=== PATIENT | female | born 1980 | race Caucasian/White ===

== ENCOUNTER 2018-09-12 12:23 | Emergency (ER) | payer SELFPAY ==
[2018-09-12] MEDS ORDERED: ONDANSETRON 4 MG TAB.RAPDIS PO ONE (12:54)
[2018-09-12] MEDS ORDERED: MORPHINE SULFATE 10 MG/ML INJ IM ONE (12:54)
--- NOTE | 2018-09-12 12:54 | ER Document Report ---
ED General - General Chief Complaint: Back Pain Stated Complaint: LOW BACK PAIN Time Seen by Provider: 09/12/18 12:43 Notes: Patient is a 38-year-old female with history of chronic low back pain and radiculopathy in the past, that presents to the emergency department for chief complaint of back pain with radicular symptoms. Patient states that yesterday morning she woke up with an ache in her low back, and it seemed to progress over the course of the day, to the point where she was having difficulty moving her right leg, felt like she was dragging it, she denies any numbness, tingling or weakness, denies saddle anesthesia or paresthesia, denies urinary retention or incontinence. ROS: Unless otherwise stated in this report the patient's positive and negative responses for review of systems for constitutional, eyes, ENT, cardiovascular, respiratory, gastrointestinal, neurological, genitourinary, musculoskeletal, and integumentary systems and related systems to the presenting problem are either as stated in the HPI or were not pertinent or were negative for the symptoms and/or complaints related to the presenting medical problem. PHYSICAL EXAMINATION: Vital signs reviewed. GENERAL: Well-appearing, well-nourished and does appear uncomfortable HEAD: Atraumatic, normocephalic. EYES: Pupils equal round extraocular movements intact, conjunctiva are normal. ENT: Nares patent NECK: Normal range of motion CV: Heart regular rate and rhythm LUNGS: No respiratory distress Musculoskeletal: Midline and paraspinal tenderness the lumbar spine, significant , worse on the right compared to the left, reflexes in the patellar and Achilles tendons are intact. NEUROLOGICAL: Normal speech, sensation and strength intact distally in the lower extremities bilaterally. PSYCH: Normal mood, normal affect. MDM: Patient seen and examined for rapid initial assessment. Vital signs reviewed. A comprehensive ED assessment and evaluation of the patient, analysis of test results and completion of the medical decision making process will be conducted by additional ED providers. *Note is created using voice recognition software and may contain spelling, syntax or grammatical errors. TRAVEL OUTSIDE OF THE [place] IN LAST 30 DAYS: No - Related Data Allergies/Adverse Reactions: ciprofloxacin [From Cipro] Allergy (Mild, Verified 09/12/18 12:24) ciprofloxacin HCl [From Cipro] Allergy (Mild, Verified 09/12/18 12:24) aspirin [Aspirin] Allergy (Verified 09/12/18 12:24) Past Medical History - Social History Smoking Status: Current Every Day Smoker Chew tobacco use (# tins/day): No Frequency of alcohol use: None Drug Abuse: None Family History: Reviewed & Not Pertinent, Arthritis, DM, Hypertension, Malignancy Patient has suicidal ideation: No Patient has homicidal ideation: No Pulmonary Medical History: Reports: Hx Bronchitis, Hx Pneumonia Renal/ Medical History: Reports: Hx Kidney Stones. Denies: Hx Peritoneal Dialysis Psychiatric Medical History: Reports: Hx Anxiety - Immunizations Hx Diphtheria, Pertussis, Tetanus Vaccination: Yes Physical Exam - Vital signs Vitals: Temp Pulse Resp BP Pulse Ox 97.6 F 71 18 131/89 H 99 09/12/18 12:29 09/12/18 12:29 09/12/18 12:29 09/12/18 12:29 09/12/18 12:29 Course - Vital Signs Vital signs: Temp Pulse Resp BP Pulse Ox 97.6 F 71 18 131/89 H 99 09/12/18 12:29 09/12/18 12:29 09/12/18 12:29 09/12/18 12:29 09/12/18 12:29
[2018-09-12] MEDS ORDERED: KETOROLAC TROMETHAMINE 60 MG/2 ML SDV IM ONE (14:30)
--- NOTE | 2018-09-12 14:31 | RADIOLOGY REPORT (SQ) ---
EXAM DESCRIPTION: L SPINE WHOLE COMPLETED DATE/TIME: 09/12/2018 2:17 pm REASON FOR STUDY: low back pain COMPARISON: 07/07/2016 NUMBER OF VIEWS: Five views including obliques. TECHNIQUE: AP, lateral, oblique, and sacral radiographic images acquired of the lumbar spine. LIMITATIONS: None. FINDINGS: MINERALIZATION: Normal. SEGMENTATION: Normal. No transitional anatomy. ALIGNMENT: Normal. VERTEBRAE: Maintained height. No fracture or worrisome bone lesion. DISCS: Preserved height. No significant osteophytes or end plate irregularity. POSTERIOR ELEMENTS: Pedicles and facets are intact. No pars defect or posterior arch defects. HARDWARE: None in the spine. PARASPINAL SOFT TISSUES: Normal. PELVIS: Intact as visualized. No fractures or worrisome bone lesions. SI joints intact. OTHER: No other significant finding. IMPRESSION: NORMAL 5 VIEW LUMBAR SPINE. TECHNICAL DOCUMENTATION: JOB ID: [id number] [employer]- All Rights Reserved Reading location - IP/workstation name: [email or web address]
--- NOTE | 2018-09-12 14:32 | ER Document Report ---
ED General - General Chief Complaint: Back Pain Stated Complaint: LOW BACK PAIN Time Seen by Provider: 09/12/18 12:43 Mode of Arrival: Ambulatory Information source: Patient Notes: This is a 38-year-old female with a history of lordosis, chronic back pain that presents to the emergency room with an exacerbation of the lumbar pain radiating down the right lower extremity with difficulty moving that leg. 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 She started having pain yesterday. She denies fever. She denies any recent illnesses. She denies any difficulty urinating or any urinary incontinence. She denies any saddle anesthesia. TRAVEL OUTSIDE OF THE [place]. IN LAST 30 DAYS: No - HPI Onset: Last week Onset/Duration: Gradual Quality of pain: Dull Severity: Moderate Pain Level: 3 Associated symptoms: denies: Chest pain, Fever, Nausea, Vomiting, Shortness of breath Exacerbated by: Movement Relieved by: Remaining still Similar symptoms previously: Yes Recently seen / treated by doctor: No - Related Data Allergies/Adverse Reactions: ciprofloxacin [From Cipro] Allergy (Mild, Verified 09/12/18 12:24) ciprofloxacin HCl [From Cipro] Allergy (Mild, Verified 09/12/18 12:24) aspirin [Aspirin] Allergy (Verified 09/12/18 12:24) Past Medical History - General Information source: Patient - Social History Smoking Status: Current Every Day Smoker Cigarette use (# per day): Yes - Half a pack per day Chew tobacco use (# tins/day): No Frequency of alcohol use: None Drug Abuse: None Lives with: Family Family History: Reviewed & Not Pertinent, Arthritis, DM, Hypertension, Malignancy Patient has suicidal ideation: No Patient has homicidal ideation: No - Past Medical History Cardiac Medical History: Reports: None Pulmonary Medical History: Reports: Hx Bronchitis, Hx Pneumonia Renal/ Medical History: Reports: Hx Kidney Stones. Denies: Hx Peritoneal Dialysis Psychiatric Medical History: Reports: Hx Anxiety Surgical Hx: Negative - Immunizations Hx Diphtheria, Pertussis, Tetanus Vaccination: Yes Review of Systems - Review of Systems Constitutional: denies: Chills, Fever EENT: No symptoms reported Cardiovascular: No symptoms reported Respiratory: No symptoms reported Gastrointestinal: No symptoms reported Genitourinary: No symptoms reported Female Genitourinary: No symptoms reported Musculoskeletal: See HPI, Back pain Skin: No symptoms reported Hematologic/Lymphatic: No symptoms reported Neurological/Psychological: No symptoms reported Physical Exam - Vital signs Vitals: Temp Pulse Resp BP Pulse Ox 97.6 F 71 18 131/89 H 99 09/12/18 12:29 09/12/18 12:29 09/12/18 12:29 09/12/18 12:29 09/12/18 12:29 Notes: Physical exam: GENERAL: Patient is alert and oriented x3, no acute distress HEAD: Atraumatic, normocephalic. EYES: Pupils equal round and reactive to light, extraocular movements intact, sclera anicteric, conjunctiva are normal. ENT: TMs normal, nares patent, oropharynx clear without exudates. Moist mucous membranes. NECK: Normal range of motion, supple without obvious mass or JVD. LUNGS: Breath sounds clear to auscultation bilaterally and equal. No wheezes rales or rhonchi. HEART: Regular rate and rhythm without murmurs, rubs or gallops. ABDOMEN: Soft, normoactive bowel sounds. No tenderness to palpation. No guarding, no rebound. No masses appreciated. Back: Patient does have vertebral point tenderness in the lumbar area and paraspinal tenderness with spasm. She does have a positive straight leg raising on the right to 10 degrees. She does have motor which is grossly similar (possibly less on the right but due to pain). Her reflexes are symmetrical. Her sensory is symmetrical. There is no saddle anesthesia. EXTREMITIES: Normal range of motion, no pitting or edema. No clubbing or cyanosis. NEUROLOGICAL: Cranial nerves II through XII grossly intact. Normal speech, moving all extremities. PSYCH: Normal mood, normal affect. SKIN: Warm, Dry, normal turgor, no rashes or lesions noted. Course - Re-evaluation Re-evalutation: 09/12/18 19:13 Note: I discussed results of the MRI with the patient as well as her mother. Plan will be for steroids, pain medicine, muscle relaxer and following up with a back surgeon. I have given them a copy of the MRI as well as the x-rays to bring to the neurosurgeon. - Vital Signs Vital signs: Temp Pulse Resp BP Pulse Ox 97.9 F 64 16 121/68 100 09/12/18 17:58 09/12/18 17:58 09/12/18 17:58 09/12/18 17:58 09/12/18 17:58 - Diagnostic Test Radiology reviewed: Image reviewed, Reports reviewed - MRI shows disc protrusion with no obvious spinal cord compression. Discharge - Discharge Clinical Impression: Acute back pain Qualifiers: Back pain location: low back pain Sciatica presence: with sciatica Condition: Stable Disposition: HOME, SELF-CARE Instructions: Low Back Pain ([facility]), Oral Narcotic Medication ([facility]), Warm Packs ( [facility]) Additional Instructions: Rest, try heating pads several times a day. Take the Medrol Dosepak as prescribed. Take the Percocet as needed: See the narcotic instructions below. Take the Robaxin for muscle relaxation. I would like you to follow-up with a back surgeon: I provided the number for Dr. Jayant Kirby in [place]. Bring a copy of today's MRI and x-ray with you when you go for that appointment. Dr. Jayant Kirby [facility] [address] [place] [address] The pain medicine you're taking prescribed as a narcotic. There are several important things you should know about this medicine: 1. This medicine contains Tylenol: It is important that you do not take Tylenol (or acetaminophen) while on this medicine. Tylenol is metabolized by the liver and taking too much Tylenol (acetaminophen) can lay to liver damage and even liver failure. 2. Taking narcotics for too long can lead to physical and mental dependence. Take this medicine only if really needed and in the lowest quantity to achieve pain relief. 3. Do not drink alcohol while on this medicine. Alcohol interacts with narcotics and the combination can be dangerous. 4. Do not drive or operate machinery while on this medicine. 5. Narcotics do cause constipation, so drink plenty of fluids and daily stool softeners. Prescriptions: Methocarbamol [Robaxin 500 mg Tablet] 500 mg PO BID #20 tablet Methylprednisolone [Medrol 4 mg Dosepack 21 Tab/Pack] 4 mg PO ASDIR PRN #21 tab.ds.pk PRN Reason: Oxycodone HCl/Acetaminophen [Percocet 5-325 mg Tablet] 1 - 2 tab PO ASDIR PRN # 25 tablet PRN Reason: Forms: Return to Work
--- NOTE | 2018-09-12 16:17 | RADIOLOGY REPORT (SQ) ---
EXAM DESCRIPTION: MRI LUMBAR SPINE WITHOUT COMPLETED DATE/TIME: 09/12/2018 4:00 pm REASON FOR STUDY: right lumbar radiculopathy COMPARISON: None. TECHNIQUE: Sagittal and Axial imaging includes T1, T2, STIR and gradient echo sequences. Coronal T2/ HASTE imaging. LIMITATIONS: None. FINDINGS: VISUALIZED UPPER ABDOMEN: Limited evaluation. No acute or suspicious findings suggested. SEGMENTATION: No transitional anatomy. The lowest well-developed disc space is labeled L5-S1. ALIGNMENT: Anatomic. VERTEBRAE: Intact. BONE MARROW: Minimal fatty reactive vertebral body endplate changes at T12-L1, L1-2, and L4-5 DISC SIGNAL: Diffuse decreased T2 weighted intervertebral disc signal. POSTERIOR ELEMENTS: Generally intact. No pars defect evident. HARDWARE: None in the spine. CORD AND CONUS: Normal in size and signal intensity. Conus at the L1-2 level. SOFT TISSUES: No aortic aneurysm seen. No bulky retroperitoneal adenopathy or mass. No paraspinal mas s or fluid. T11-12: At the upper edge of the field of view. Minimal posterior disc bulging, mild bilateral face t and ligament hypertrophy. No central or foraminal stenosis. T12-L1: Unremarkable L1-L2: Minimal posterior disc bulging is present with mild bilateral facet hypertrophy. No central o r foraminal stenosis. L2-L3: Mild posterior disc bulging is present with mild bilateral facet and ligament hypertrophy. No central or foraminal stenosis. L3-L4: Mild posterior disc bulging is present with mild bilateral facet and ligament hypertrophy. No central or foraminal stenosis L4-L5: Mild posterior disc bulging is present with mild bilateral facet and ligament hypertrophy. No central or foraminal stenosis L5-S1: Mild posterior disc bulging is present with mild bilateral facet and ligament hypertrophy. No central or foraminal stenosis SACRUM: Visualized upper sacrum intact. OTHER: No other significant findings. IMPRESSION: No high-grade central or foraminal encroachment. TECHNICAL DOCUMENTATION: JOB ID: [id number]- All Rights Reserved Reading location - IP/workstation name: [email or web address]-RR
[2018-09-12 18:00] VITALS: BP 121/68
== END 2018-09-12 18:02 | disposition home or self-care (01) ==
LOC: ER 12:23
DX: M51.17 Intervertebral disc disorders with radiculopathy, lumbosacral region (principal); M51.84 Other intervertebral disc disorders, thoracic region; F17.210 Nicotine dependence, cigarettes, uncomplicated; Z88.1 Allergy status to other antibiotic agents; Z88.6 Allergy status to analgesic agent
CPT/HCPCS: 99284; 96372; 72148; 72110; J1885; S0119; J2270

== ENCOUNTER 2019-01-09 19:16 | Emergency (ER) | payer SELFPAY ==
[2019-01-09] MEDS ORDERED: KETOROLAC TROMETHAMINE INJ/PF 30 MG/1 ML SDV IM ONE (21:30)
[2019-01-09] MEDS ORDERED: LIDOCAINE 5% (700 MG) TRANSDERMAL ADH..PATCH TP ONE (21:31)
[2019-01-09] MEDS ORDERED: CYCLOBENZAPRINE HCL 10 MG TABLET PO ONE (21:31)
--- NOTE | 2019-01-09 21:36 | ER Document Report ---
ED General - General Chief Complaint: Low Back Pain Stated Complaint: LOWER BACK PAIN Time Seen by Provider: 01/09/19 21:19 Mode of Arrival: Ambulatory Information source: Patient TRAVEL OUTSIDE OF THE [place].S[place] IN LAST 30 DAYS: No - HPI Patient complains to provider of: Mid lower back pain Onset: Other - 3 days ago Onset/Duration: Sudden Quality of pain: Sharp, Stabbing Severity: Severe Associated symptoms: denies: Chills, Fever Exacerbated by: Movement, Walking Relieved by: Denies Similar symptoms previously: No Recently seen / treated by doctor: No Notes: Obese 38-year-old female in today with chief complaint mid low back pain. Symptoms started 3 days ago while the patient was working out. She was doing an exercise where she was laying on her abdomen and lifting weights with her legs. She felt a sudden pop in her mid low back and has continued to have pain with any kind of movement for the subsequent following 3 days. Denies bladder and bowel dysfunction. Denies saddle anesthesia. Denies focal weakness. Denies urinary symptoms. DENIES . - Related Data Allergies/Adverse Reactions: ciprofloxacin [From Cipro] Allergy (Mild, Verified 09/12/18 12:24) ciprofloxacin HCl [From Cipro] Allergy (Mild, Verified 09/12/18 12:24) aspirin [Aspirin] Allergy (Verified 09/12/18 12:24) Past Medical History - General Information source: Patient - Social History Smoking Status: Current Every Day Smoker Family History: Reviewed & Not Pertinent, Arthritis, DM, Hypertension, Malignancy Patient has suicidal ideation: No Patient has homicidal ideation: No Pulmonary Medical History: Reports: Hx Bronchitis, Hx Pneumonia Renal/ Medical History: Reports: Hx Kidney Stones. Denies: Hx Peritoneal Dialysis Psychiatric Medical History: Reports: Hx Anxiety - Immunizations Hx Diphtheria, Pertussis, Tetanus Vaccination: Yes Review of Systems - Review of Systems Notes: Constitutional: No fevers. No chills. EENT: No eye redness. No eye pain. No ear pain. No sore throat. Cardiovascular: No chest pain. No palpitations. Respiratory: No cough. No shortness of breath. No respiratory distress. Gastrointestinal: No abdominal pain. No nausea, vomiting, or diarrhea. Genitourinary: Atraumatic. No lesions. No pain. No discharge. Musculoskeletal: Atraumatic. No swelling. No deformities. Back pain Skin: No rash or lesions. Lymphatic: No swollen lymph nodes. Neurologic: No headache. No syncope. Psychiatric: No suicidal or homicidal ideation. Physical Exam - Vital signs Vitals: Temp Pulse Resp BP Pulse Ox 97.7 F 83 16 136/87 H 100 01/09/19 19:16 01/09/19 19:16 01/09/19 19:16 01/09/19 19:16 01/09/19 19:16 - Notes Notes: General: Well-developed, well-nourished. In no acute distress. Non-toxic appearing. Cardiac: Well-perfused. Regular rate and rhythm. No murmurs, rubs, or gallops. Pulmonary: No respiratory distress. No cyanosis. Bilateral lung fiels are clear to auscultation. Abdominal: Non-distended. Non-rigid. Bowels sounds are present in all four quadrants. No guarding or rebound. HEENT: Head is atraumatic. Conjunctivae not reddened. No tearing. PERRL. EOMI. Orbits atraumatic. No periorbital swelling or erythema. Oropharynx is without erythema, swelling, or exudates. Neck: Supple. No adenopathy. No meningismus. Dermatologic: Warm with good turgor. No rash. Atraumatic. Chest: Atraumatic. No chest wall tenderness to palpation. Musculoskeletal: Moves all extremities well. Midline lumbosacral tenderness without step-off. Decreased flexion and extension secondary to Genitourinary: Examination deferred Neurologic: No gross neurologic deficits. Psychiatric: Normal mood. Course - Re-evaluation Re-evalutation: 01/09/19 21:35 We will go ahead and get plain films and give her some Lidoderm, Flexeril, and Toradol here. 01/09/19 22:38 X-rays negative. We will go ahead and give her some medications outpatient for lumbar strain. - Vital Signs Vital signs: Temp Pulse Resp BP Pulse Ox 97.7 F 83 16 136/87 H 100 01/09/19 19:16 01/09/19 19:16 01/09/19 19:16 01/09/19 19:16 01/09/19 19:16 Discharge - Discharge Clinical Impression: Lumbar strain Qualifiers: Encounter type: initial encounter Qualified Code(s): S39.012A - Strain of muscle, fascia and tendon of lower back, initial encounter Disposition: HOME, SELF-CARE Instructions: Ice Packs ([facility]), Low Back Pain ([facility]), Muscle Strain ([facility]), Oral Narcotic Medication ([facility]) Prescriptions: Hydrocodone/Acetaminophen [Mobridge 5-325 Tablet] 1 each PO Q6HP PRN #10 tablet PRN Reason: Cyclobenzaprine HCl [Flexeril 5 mg Tablet] 5 mg PO TID #15 tablet Naproxen 500 mg PO BID 5 Days #10 tablet Forms: Elevated Blood Pressure, Smoking Cessation Education, Return to Work Referrals: [facility] [Provider Group] - Follow up as needed
--- NOTE | 2019-01-09 22:23 | RADIOLOGY REPORT (SQ) ---
EXAM DESCRIPTION: XR LUMBAR SPINE ANTEROPOSTERIOR, LATERAL, AND OBLIQUES COMPLETED DATE/TME: 01/09/2019 21:32 CLINICAL HISTORY: 38 years, Female, BACK INJURY COMPARISON: 09/12/2018 lumbar spine NUMBER OF VIEWS: 5 TECHNIQUE: 5 views lumbar spine LIMITATIONS: None. FINDINGS: 5 nonrib-bearing lumbar-type vertebral bodies. Vertebral body height and alignment is preserved. There are no pars defects. The sacroiliac joints are preserved. The disc spaces are maintained IMPRESSION: Unremarkable lumbar spine copyright 2010 [employer]- All Rights Reserved
[2019-01-09] MEDS ORDERED: HYDROCODONE/ACETAMINOPHEN 10-325 MG TABLET PO ONE (22:43)
[2019-01-09 22:53] VITALS: BP 138/88
== END 2019-01-09 22:52 | disposition home or self-care (01) ==
LOC: ER 19:16
DX: S39.012A Strain of muscle, fascia and tendon of lower back, initial encounter (principal); X50.0XXA Overexertion from strenuous movement or load, initial encounter; Y93.B3 Activity, free weights; Z88.3 Allergy status to other anti-infective agents
CPT/HCPCS: 99283; 96372; 72110; J1885

== ENCOUNTER 2019-09-02 18:28 | Emergency (ER) | payer BC ==
--- NOTE | 2019-09-02 18:38 | ER Document Report ---
ED Medical Screen (RME) - General Stated Complaint: POSSIBLE BLOOD CLOT RIGHT LEG Time Seen by Provider: 09/02/19 18:35 Mode of Arrival: Ambulatory Information source: Patient Notes: Patient presents complaining of right lower extremity pain for the past month. Patient with tender raised erythematous area to medial right calf. I have greeted and performed a rapid initial assessment of this patient. A comprehensive ED assessment and evaluation of the patient, analysis of test results and completion of the medical decision making process will be conducted by additional ED providers. TRAVEL OUTSIDE OF THE [place] IN LAST 30 DAYS: No - Related Data Allergies/Adverse Reactions: ciprofloxacin [From Cipro] Allergy (Mild, Verified 09/12/18 12:24) ciprofloxacin HCl [From Cipro] Allergy (Mild, Verified 09/12/18 12:24) aspirin [Aspirin] Allergy (Verified 09/12/18 12:24) Past Medical History Pulmonary Medical History: Reports: Hx Bronchitis, Hx Pneumonia Renal/ Medical History: Reports: Hx Kidney Stones. Denies: Hx Peritoneal Dialysis Psychiatric Medical History: Reports: Hx Anxiety - Immunizations Hx Diphtheria, Pertussis, Tetanus Vaccination: Yes Physical Exam - General General appearance: Appears well, Alert Notes: Tender warm erythematous area to right lower extremity, subtle swelling to right calf.
--- NOTE | 2019-09-02 19:58 | ER Document Report ---
ED General - General Chief Complaint: Swelling of Lower Extremity Stated Complaint: POSSIBLE BLOOD CLOT RIGHT LEG Time Seen by Provider: 09/02/19 18:35 Primary Care Provider: DERIAN DAVIS PA-C [Primary Care Provider] - Follow up as needed Mode of Arrival: Ambulatory TRAVEL OUTSIDE OF THE [place] IN LAST 30 DAYS: No - HPI Notes: Patient is a 39-year-old female who presents to the emergency department for evaluation of right calf pain/swelling. Is been going on intermittently for the last 4 to 6 weeks. She denies any chest pain or shortness of breath. She states she has a family history of DVTs, so she became concerned. She states that the swelling seems to wax and wane, but never really goes away. She tried some boots today, that went up to her knees, and it did not really help much. She has not yet had compression stockings. - Related Data Allergies/Adverse Reactions: ciprofloxacin [From Cipro] Allergy (Mild, Verified 09/12/18 12:24) ciprofloxacin HCl [From Cipro] Allergy (Mild, Verified 09/12/18 12:24) aspirin [Aspirin] Allergy (Verified 09/12/18 12:24) Past Medical History - General Information source: Patient - Social History Smoking Status: Current Every Day Smoker Family History: Reviewed & Not Pertinent, Arthritis, DM, Hypertension, Malignancy Patient has suicidal ideation: No Patient has homicidal ideation: No Pulmonary Medical History: Reports: Hx Bronchitis, Hx Pneumonia Renal/ Medical History: Reports: Hx Kidney Stones. Denies: Hx Peritoneal Dialysis Psychiatric Medical History: Reports: Hx Anxiety - Immunizations Hx Diphtheria, Pertussis, Tetanus Vaccination: Yes Physical Exam - Vital signs Vitals: Temp Pulse Resp BP Pulse Ox 98.4 F 80 16 146/89 H 100 09/02/19 18:32 09/02/19 18:32 09/02/19 18:32 09/02/19 18:32 09/02/19 18:32 Course - Re-evaluation Re-evalutation: 09/02/19 20:56 Presents emergency department for evaluation. She was concerned about the possibility of a DVT. Preliminary exam results were failed to reveal any signs of DVT. Clinically I believe she does have superficial thrombophlebitis. I will send her home with anti-inflammatories, instructions on thrombophlebitis, and close follow-up. She is to return to the ED with worsening or new concerning symptoms of any sort. - Vital Signs Vital signs: Temp Pulse Resp BP Pulse Ox 98.4 F 80 16 146/89 H 100 09/02/19 18:32 09/02/19 18:32 09/02/19 18:32 09/02/19 18:32 09/02/19 18:32 Discharge - Discharge Clinical Impression: Superficial thrombophlebitis of lower leg Condition: Stable Disposition: HOME, SELF-CARE Instructions: Superficial Phlebitis ([facility]) Additional Instructions: Warm compresses and anti-inflammatories as discussed. Follow-up with your primary care physician this week. Return to the emergency department with worsening or new concerning symptoms of any sort. Referrals: DERIAN DAVIS PA-C [Primary Care Provider] - Follow up as needed
[2019-09-02 21:09] VITALS: BP 121/77
--- NOTE | 2019-09-03 10:05 | XCELERA REPORT ---
[address] [place] [facility] [address] Lower Extremity Venous Evaluation Procedure: Color flow and duplex imaging of the veins of the right lower extremity as well as the left Common Femoral vein. Right Sided Venous Evaluation Normal vessel filling wall to wall, compression and augmentation as well as Colour flow down to the infrageniculate veins. Left Sided Venous Evaluation The left common femoral vein is fully compressible. Spontaneous and phasic flow is present in the left common femoral vein. Interpretation Summary No duplex evidence of DVT or obstruction in the right lower extremity nor in the left Common Femoral vein. Name: YUKO CLAY Age: 39 yrs Gender: Female : 1980 Patient Status: Emergency Patient Location: ER Study Date: 09/02/2019 07:46 PM Reason For Study: RLE pain, swelling Ordering Physician: MARCELA MEDELLIN Performed By: Genet Schultz : MARCELA MEDELLIN > Hair Martinez
== END 2019-09-02 21:10 | disposition home or self-care (01) ==
LOC: ER 18:28
DX: I80.00 Phlebitis and thrombophlebitis of superficial vessels of unspecified lower extremity (principal); M79.89 Other specified soft tissue disorders; M79.661 Pain in right lower leg; F17.200 Nicotine dependence, unspecified, uncomplicated; Z88.1 Allergy status to other antibiotic agents; Z88.8 Allergy status to other drugs, medicaments and biological substances
CPT/HCPCS: 93971; 99283

== ENCOUNTER 2020-01-03 15:15 | Emergency (ER) | payer BC ==
--- NOTE | 2020-01-03 16:21 | ER Document Report ---
ED Medical Screen (RME) - General Chief Complaint: Vaginal Bleeding Stated Complaint: VAGINAL BLEEDING Time Seen by Provider: 01/03/20 16:17 Primary Care Provider: DERIAN DAVIS PA-C [Primary Care Provider] - Follow up as needed TRAVEL OUTSIDE OF THE [place] IN LAST 30 DAYS: No - HPI Notes: 01/03/20 16:20 Patient is a 39-year-old female G4, P0 approximately 6 weeks with 3 previous miscarriages presents complaining of light vaginal bleeding that began today. No other concerns or complaints at this time. No fever, chest pain, shortness breath, abdominal pain. Pt is blood type A+ by chart review and red cross card on-hand. I have treated and performed a rapid initial assessment of this patient. A comprehensive ED assessment and evaluation of the patient, analysis of test results and completion of medical decision making process will be conducted by additional ED providers. PHYSICAL EXAMINATION: GENERAL: Well-appearing, well-nourished and in no acute distress. A&Ox4. Answers questions appropriately. - Related Data Allergies/Adverse Reactions: ciprofloxacin [From Cipro] Allergy (Mild, Verified 01/03/20 16:17) ciprofloxacin HCl [From Cipro] Allergy (Mild, Verified 01/03/20 16:17) aspirin [Aspirin] Allergy (Verified 01/03/20 16:17) Past Medical History Pulmonary Medical History: Reports: Hx Bronchitis, Hx Pneumonia Renal/ Medical History: Reports: Hx Kidney Stones. Denies: Hx Peritoneal Dialysis Psychiatric Medical History: Reports: Hx Anxiety - Immunizations Hx Diphtheria, Pertussis, Tetanus Vaccination: Yes Physical Exam - Vital signs Vitals: Temp Pulse Resp BP Pulse Ox 98.8 F 89 16 150/85 H 99 01/03/20 15:24 01/03/20 15:24 01/03/20 15:24 01/03/20 15:24 01/03/20 15:24 Course - Vital Signs Vital signs: Temp Pulse Resp BP Pulse Ox 98.8 F 89 16 150/85 H 99 01/03/20 15:24 01/03/20 15:24 01/03/20 15:24 01/03/20 15:24 01/03/20 15:24 Doctor's Discharge - Discharge Referrals: DERIAN DAVIS PA-C [Primary Care Provider] - Follow up as needed
[2020-01-03 16:48] LABS: ABSOLUTE BASOPHILS # (AUTO) 0.1 10^3/uL (0.0-0.2); ABSOLUTE EOSINOPHILS # (AUTO) 0.2 10^3/uL (0.0-0.6); ABSOLUTE LYMPHOCYTES (AUTO) 2.4 10^3/uL (0.5-4.7); ABSOLUTE MONOCYTES (AUTO) 0.6 10^3/uL (0.1-1.4); ABSOLUTE NEUT (AUTO) 6.3 10^3/uL (1.7-8.2); EOSINOPHILS % (AUTO) 1.7 % (0-6); HEMATOCRIT 44.2 % (36.0-47.0); HEMOGLOBIN 15.2 g/dL (12.0-15.5); MEAN CORPUSCULAR HEMOGLOBIN 31.7 pg (27.0-33.4); MEAN CORPUSCULAR HGB CONC 34.5 g/dL (32.0-36.0); MEAN CORPUSCULAR VOLUME 92 fl (80-97); MONOCYTES % (AUTO) 6.6 % (3-13); PLATELET COUNT 269 10^3/uL (150-450); RED CELL DISTRIBUTION WIDTH 13.5 % (11.5-14.0); SEGMENTED NEUTROPHILS % (AUTO) 65.7 % (42-78); TOTAL CELLS COUNTED % (AUTO) 100 %; WHITE BLOOD COUNT 9.6 10^3/uL (4.0-10.5)
[2020-01-03 16:55] LABS: APPEARANCE,URINE SLIGHTLY-CLOUDY; BILIRUBIN,URINE NEGATIVE (NEGATIVE); COLOR,URINE YELLOW; GLUCOSE, URINE NEGATIVE (NEGATIVE); KETONES,URINE TRACE mg/dL (NEGATIVE); PROTEIN,URINE NEGATIVE (NEGATIVE); URINE SPECIFIC GRAVITY 1.027
--- NOTE | 2020-01-03 18:08 | RADIOLOGY REPORT (SQ) ---
EXAM DESCRIPTION: U/S OB TRANSVAGINAL W/O DOP COMPLETED DATE/TIME: 01/03/2020 5:38 pm REASON FOR STUDY: bleeding, approx 6wks preg COMPARISON: None. TECHNIQUE: Transvaginal static and realtime grayscale images acquired of the pelvis. Additional tala cted spectral and color Doppler images recorded. All images stored on PACs. bHCG: Not available. CLINICAL DATES: LMP 11/21/2019 6 weeks 1 day LIMITATIONS: None. FINDINGS: The patient is known to have a bicornuate uterus. FETUS: Sonographic imaging suggests the presence of a gestational sac and yolk sac in the right horn of the uterus but no pole is identified. In the left horn there is a definable gestational sa c with yolk sac and a pole ULTRASOUND EGA: 6 weeks 0 days by crown-rump length. ULTRASOUND CAITLIN: 08/29/2020 EFW: Not applicable less than 20 weeks. CRL: 3.3 mm. FHR: 117 beats per minute. SURVEY: Too early to assess. AMNIOTIC FLUID: Adequate amount. PLACENTA: Not yet developed due to early gestation. SUBCHORIONIC BLEED: No SIZE OF BLEED: Not applicable. UTERUS: No masses. No anomalies. CERVICAL LENGTH: 2.3 cm Closed. RIGHT ADNEXA: Normal ovary with normal vascular flow. No adnexal free fluid. No adnexal masses. LEFT ADNEXA: Normal ovary with normal vascular flow.2.8 x 3.2 x 2.6 cm. There is a 1.5 x 1 x 1.2 cm corpus luteum. No adnexal free fluid. No adnexal masses. FREE FLUID: None. OTHER: No other significant finding. IMPRESSION: 1. Possible twin gestation with a gestational sac in each horn of a known bicornuate ut erus. A pole is not seen on the right. Follow-up as clinically indicated. 2. Intrauterine gestation with a pole in the left horn of the uterus of 6 weeks 0 days gestati onal age. TECHNICAL DOCUMENTATION: JOB ID: [id number] 2010 [employer]- All Rights Reserved rev-04/07 Reading location - IP/workstation name: [email or web address]
[2020-01-03 18:15] LABS: ALBUMIN 4.1 g/dL (3.5-5.0); ALKALINE PHOSPHATASE 43 U/L (38-126); ANION GAP 8 (5-19); ASPARTATE AMINO TRANSFERASE 19 U/L (14-36); BILIRUBIN,TOTAL 0.4 mg/dL (0.2-1.3); BLOOD UREA NITROGEN 16 mg/dL (7-20); CALCIUM 9.4 mg/dL (8.4-10.2); CARBON DIOXIDE 25 mmol/L (22-30); CHLORIDE 104 mmol/L (98-107); GLUCOSE 82 mg/dL (75-110); POTASSIUM 4.8 mmol/L (3.6-5.0); TOTAL PROTEIN 6.9 g/dL (6.3-8.2)
--- NOTE | 2020-01-03 18:23 | ER Document Report ---
ED General - General Chief Complaint: Vag Bleeding, +preg <12wks Stated Complaint: VAGINAL BLEEDING Time Seen by Provider: 01/03/20 16:17 Primary Care Provider: DERIAN DAVIS PA-C [PHYSICIAN DIRECTOR OF LAND ACQUISITION] - Follow up as needed Notes: Patient is a 39-year-old white female who is G4, P0 with 3 prior miscarriages who presents to the emergency department with a chief complaint of vaginal bleeding with . She states she is 6 weeks per last menstrual period. She states that she is not trying to conceive. She states about 20 minutes prior to arrival she started having scant, spotting of a bright red blood with few clots. She denies any pain associated. Denies any urinary symptoms. States that she was supposed to have an appointment with her COMMERCIAL CENSUS TAKER tomorrow but called today with concerns and they sent her here for evaluation. She states that she is aware of having a history of a bicornuate uterus and feels this is why she has had 3 prior miscarriages. She denies any other pain, complaints or concerns at this time. TRAVEL OUTSIDE OF THE [place] IN LAST 30 DAYS: No - Related Data Allergies/Adverse Reactions: ciprofloxacin [From Cipro] Allergy (Mild, Verified 01/03/20 16:17) ciprofloxacin HCl [From Cipro] Allergy (Mild, Verified 01/03/20 16:17) aspirin [Aspirin] Allergy (Verified 01/03/20 16:17) Home Medications: prenatals Past Medical History - Social History Smoking Status: Current Every Day Smoker Chew tobacco use (# tins/day): No Frequency of alcohol use: None Drug Abuse: None Family History: Reviewed & Not Pertinent, Arthritis, DM, Hypertension, Malignancy Patient has suicidal ideation: No Patient has homicidal ideation: No Pulmonary Medical History: Reports: Hx Bronchitis, Hx Pneumonia Renal/ Medical History: Reports: Hx Kidney Stones. Denies: Hx Peritoneal Dialysis Psychiatric Medical History: Reports: Hx Anxiety - Immunizations Hx Diphtheria, Pertussis, Tetanus Vaccination: Yes Review of Systems - Review of Systems Female Genitourinary: Vaginal bleeding -: Yes All other systems reviewed and negative Physical Exam - Vital signs Vitals: Temp Pulse Resp BP Pulse Ox 98.8 F 89 16 150/85 H 99 01/03/20 15:24 01/03/20 15:24 01/03/20 15:24 01/03/20 15:24 01/03/20 15:24 - General General appearance: Appears well, Alert In distress: None - Respiratory Respiratory status: No respiratory distress Chest status: Nontender Breath sounds: Normal Chest palpation: Normal - Cardiovascular Rhythm: Regular Heart sounds: Normal auscultation - Abdominal Inspection: Normal Distension: No distension Bowel sounds: Normal Tenderness: Nontender Organomegaly: No organomegaly - Back Back: Normal, Nontender - Neurological Neuro grossly intact: Yes Cognition: Normal Orientation: AAOx4 Peter Coma Scale Eye Opening: Spontaneous Peter Coma Scale Verbal: Oriented Asher Coma Scale Motor: Obeys Commands Peter Coma Scale Total: 15 Speech: Normal - Psychological Associated symptoms: Normal affect, Normal mood - Skin Skin Temperature: Warm Skin Moisture: Dry Skin Color: Normal Course - Re-evaluation Re-evalutation: 01/03/20 18:23 Patient's hCG just over 20,000. Ultrasound showing possible twin gestation with a gestational sac seen in each horn of the bicornuate uterus. There is no pole seen on the right, there is one seen on the left that measures 6 weeks 0 days per radiologist. Patient states that she has an appointment tomor row with her COMMERCIAL CENSUS TAKER. She states that she will follow-up with them tomorrow. We discussed the possibilities of early viable versus incomplete . She denies any known maternal history of twin gestations. She is a positive blood type. Counseled her at length regarding the importance of outpatient follow-up and advised that she return here or any ER immediately with any new, persistent or worsening symptoms. She verbalized understood and agreed. - Vital Signs Vital signs: Temp Pulse Resp BP Pulse Ox 98.8 F 89 16 150/85 H 99 01/03/20 15:24 01/03/20 15:24 01/03/20 15:24 01/03/20 15:24 01/03/20 15:24 - Laboratory Result Diagrams: 01/03/20 16:29 01/03/20 16:29 Laboratory results interpreted by me: 01/03/20 01/03/20 01/03/20 15:40 16:29 16:29 Sodium 136.6 L Beta HCG, Quant 57904.00 H Urine Ketones TRACE H Urine Blood MODERATE H Urine Urobilinogen 2.0 H Discharge - Discharge Clinical Impression: Early versus incomplete aborti Condition: Stable Disposition: HOME, SELF-CARE Instructions: Threatened Miscarriage ([facility]) Additional Instructions: Please follow-up with your COMMERCIAL CENSUS TAKER tomorrow as scheduled and discussed. Follow- up with your regular doctor in 2 to 3 days for reevaluation. Return here or any ER immediately with any new, persistent or worsening symptoms. Referrals: DERIAN DAVIS PA-C [PHYSICIAN DIRECTOR OF LAND ACQUISITION] - Follow up as needed
[2020-01-03 18:45] VITALS: BP 141/80
== END 2020-01-03 18:45 | disposition home or self-care (01) ==
LOC: ER 15:15
DX: O20.9 Hemorrhage in early pregnancy, unspecified (principal); O34.01 Maternal care for unspecified congenital malformation of uterus, first trimester; Q51.3 Bicornate uterus; O99.331 Smoking (tobacco) complicating pregnancy, first trimester; F17.200 Nicotine dependence, unspecified, uncomplicated; Z3A.01 Less than 8 weeks gestation of pregnancy; Z79.899 Other long term (current) drug therapy; Z87.59 Personal history of other complications of pregnancy, childbirth and the puerperium; Z88.1 Allergy status to other antibiotic agents; Z88.8 Allergy status to other drugs, medicaments and biological substances
CPT/HCPCS: 36415; 76817; 80053; 81001; 84702; 85025; 99284

== ENCOUNTER 2020-01-14 05:31 | Emergency (ER) | payer BC ==
[2020-01-14 07:17] LABS: ABSOLUTE BASOPHILS # (AUTO) 0.1 10^3/uL (0.0-0.2); ABSOLUTE EOSINOPHILS # (AUTO) 0.2 10^3/uL (0.0-0.6); ABSOLUTE LYMPHOCYTES (AUTO) 2.2 10^3/uL (0.5-4.7); ABSOLUTE MONOCYTES (AUTO) 0.7 10^3/uL (0.1-1.4); BASOPHILS % (AUTO) 0.8 % (0-2); EOSINOPHILS % (AUTO) 1.8 % (0-6); HEMATOCRIT 43.1 % (36.0-47.0); HEMOGLOBIN 14.9 g/dL (12.0-15.5); LYMPHOCYTES % (AUTO) 24.1 % (13-45); MEAN CORPUSCULAR HEMOGLOBIN 31.6 pg (27.0-33.4); MEAN CORPUSCULAR HGB CONC 34.6 g/dL (32.0-36.0); MEAN CORPUSCULAR VOLUME 92 fl (80-97); MONOCYTES % (AUTO) 7.2 % (3-13); PLATELET COUNT 259 10^3/uL (150-450); RED BLOOD COUNT 4.71 10^6/uL (3.72-5.28); RED CELL DISTRIBUTION WIDTH 13.6 % (11.5-14.0); SEGMENTED NEUTROPHILS % (AUTO) 66.1 % (42-78); TOTAL CELLS COUNTED % (AUTO) 100 %; WHITE BLOOD COUNT 9.2 10^3/uL (4.0-10.5)
[2020-01-14 07:26] LABS: APPEARANCE,URINE CLEAR; BILIRUBIN,URINE NEGATIVE (NEGATIVE); COLOR,URINE YELLOW; GLUCOSE, URINE NEGATIVE (NEGATIVE); KETONES,URINE NEGATIVE (NEGATIVE); LEUKOCYTE ESTERASE,URINE NEGATIVE (NEGATIVE); NITRITE,URINE NEGATIVE (NEGATIVE); PROTEIN,URINE NEGATIVE (NEGATIVE); URINE SPECIFIC GRAVITY 1.005; UROBILINOGEN,URINE NEGATIVE mg/dL (<2.0)
--- NOTE | 2020-01-14 09:39 | RADIOLOGY REPORT (SQ) ---
EXAM DESCRIPTION: U/S OB TRANSVAGINAL W/O DOP COMPLETED DATE/TIME: 01/14/2020 9:10 am REASON FOR STUDY: preg vag bleed COMPARISON: Ultrasound from 01/03/2020. TECHNIQUE: Transvaginal static and realtime grayscale images acquired of the pelvis. Additional tala cted spectral and color Doppler images recorded. All images stored on PACs. bHC,355 mIU/mL. CLINICAL DATES: LMP 11/21/2019. EGA based on LMP 7 weeks 5 days. CAITLIN based on LMP 08/27/2020. LIMITATIONS: None. FINDINGS: Twin Intra-uterine gestation TYPE OF TWIN: Dichorionic Diamniotic. Two gestational sacs. Two yolk sacs. TWIN A: ULTRASOUND EGA: 6 weeks 4 days. ULTRASOUND CAITLIN: 09/04/2020. CRL: 7 mm. GESTATIONAL SAC: Normal shape. SURVEY: Too early to assess. FHR: 70 bpm. AMNIOTIC FLUID: Too early to assess. PLACENTA: Too early to assess. SUBCHORIONIC BLEED: Yes. SIZE OF BLEED: 1.1 x 1.5 x 1.4 cm. TWIN B: ULTRASOUND EGA: 7 weeks 4 days. ULTRASOUND CAITLIN: 08/28/2020. CRL: 1.35 cm. GESTATIONAL SAC: Normal shape. SURVEY: Too early to assess. FHR: 157 bpm. AMNIOTIC FLUID: Too early to assess. SUBCHORIONIC BLEED: See above. UTERUS: The uterus measures 10 x 6.6 x 6.1 cm. There is an intrauterine dichorionic diamniotic twin . CERVICAL LENGTH: 2.9 cm. Closed. RIGHT ADNEXA: The right ovary measures 2.9 x 2.3 x 1.7 cm and on Doppler there is intact color flow w ithin the ovarian stroma. There is no adnexal mass. LEFT ADNEXA: The left ovary measures 3.5 x 2.9 x 1.8 cm on on Doppler there is intact color flow with in the ovarian stroma. The heterogeneous hypoechoic structure in the left ovary that measures 1.5 x 1 x 1 cm could represent a corpus luteum cyst. FREE FLUID: None. OTHER: No other finding. IMPRESSION: LIVE TWIN INTRAUTERINE TWIN A EGA: 6 weeks 4 days. TWIN B EGA: 7 weeks 4 days. Unit disc external to discrepancy between the EGAs of the fetuses the heart rate of Twin A is abnorma lly low and the gestational sac of Twin A is close to the lower uterine segment and the aforementione d subchronic hemorrhage. A follow-up ultrasound is recommended. Trimester of : First trimester - 0 to 13 weeks. TECHNICAL DOCUMENTATION: JOB ID: [id number] 2010 [email or web address]- All Rights Reserved rev-04/07 Reading location - IP/workstation name: [email or web address]
--- NOTE | 2020-01-14 10:08 | ER Document Report ---
ED General - General Chief Complaint: Vaginal Bleeding Stated Complaint: VAGINAL BLEEDING Time Seen by Provider: 01/14/20 08:03 Mode of Arrival: Ambulatory Information source: Patient Notes: 39-year-old female approximately 36 weeks presents to the emergency department with complaints of right red vaginal bleeding that started when she was in the shower this morning getting ready for work. 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 Denies trauma. She denies abdominal pain. Denies pain with void. Denies fever vomiting diarrhea. She reports her abdomen felt uncomfortable for weeks but it is more normal now. She reports she is . She reports she had an ultrasound recently and it showed that she was with twins. She also notes she has bicornate uterus. TRAVEL OUTSIDE OF THE [place] IN LAST 30 DAYS: No - HPI Onset: Just prior to arrival Onset/Duration: Sudden Quality of pain: No pain Associated symptoms: None Exacerbated by: Denies Relieved by: Denies Similar symptoms previously: No Recently seen / treated by doctor: No - Related Data Allergies/Adverse Reactions: ciprofloxacin [From Cipro] Allergy (Mild, Verified 01/03/20 16:17) ciprofloxacin HCl [From Cipro] Allergy (Mild, Verified 01/03/20 16:17) aspirin [Aspirin] Allergy (Verified 01/03/20 16:17) Home Medications: vitamins. 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 Denies: Hx Peritoneal Dialysis Psychiatric Medical History: Reports: Hx Anxiety Surgical Hx: Negative - Immunizations Hx Diphtheria, Pertussis, Tetanus Vaccination: Yes Review of Systems - Review of Systems Notes: Review HPI for review of systems., All other systems negative Physical Exam - Vital signs Vitals: Temp Pulse Resp BP Pulse Ox 98.2 F 71 20 143/85 H 98 01/14/20 05:36 01/14/20 05:36 01/14/20 05:36 01/14/20 05:36 01/14/20 05:36 - Notes Notes: PHYSICAL EXAMINATION: GENERAL: Well-appearing and in no acute distress HEAD: Atraumatic, normocephalic. EYES: Pupils equal round extraocular movements intact, sclera anicteric, conjunctiva are normal. ENT: nares patent, Moist mucous membranes. NECK: Normal range of motion, supple without lymphadenopathy LUNGS: CTAB and equal. No wheezes rales or rhonchi. HEART: Regular rate and rhythm without murmurs ABDOMEN: Soft, no tenderness. No guarding, no rebound EXTREMITIES: Normal range of motion, NEUROLOGICAL: Cranial nerves grossly intact. PSYCH: Normal mood, normal affect. SKIN: Warm, Dry, normal turgor, no rashes or lesions noted Course - Re-evaluation Re-evalutation: 01/14/20 14:34 Patient presents emergency department with complaints of vaginal bleeding started when she was in the shower this morning prior to arrival. Denies trauma. Denies pain. Reports that she has a bicornate uterus. She also reports she is high risk . Labs unremarkable ultrasound shows twin . Patient was given a copy of all labs and ultrasound. She reports she has an OB appointment next week and [place]. Patient reports that is where her boyfriend lives and she is moving to that area. She was instructed to monitor the bleeding. She was instructed to return for concerns worsening bleeding abdominal pains. She verbalized understanding to all instructions Laboratory 01/14/20 01/14/20 01/14/20 06:38 06:38 06:38 WBC 9.2 RBC 4.71 Hgb 14.9 Hct 43.1 MCV 92 MCH 31.6 MCHC 34.6 RDW 13.6 Plt Count 259 Lymph % (Auto) 24.1 [place] % (Auto) 7.2 Eos % (Auto) 1.8 Baso % (Auto) 0.8 Absolute Neuts (auto) 6.0 Absolute Lymphs (auto) 2.2 Absolute Monos (auto) 0.7 Absolute Eos (auto) 0.2 Absolute Basos (auto) 0.1 Seg Neutrophils % 66.1 Beta HCG, Quant 18531.00 H Total Beta HCG POSITIVE Urine Color YELLOW Urine Appearance CLEAR Urine pH 7.0 Ur Specific [place] 1.005 Urine Protein NEGATIVE Urine Glucose (UA) NEGATIVE Urine Ketones NEGATIVE Urine Blood LARGE H Urine Nitrite NEGATIVE Urine Bilirubin NEGATIVE Urine Urobilinogen NEGATIVE Ur Leukocyte Esterase NEGATIVE Urine WBC (Auto) 0 Urine RBC (Auto) 0 Squamous Epi Cells Auto 1 Urine Ascorbic Acid NEGATIVE Obstetrics Ultrasound 01/14/20 08:27 IMPRESSION: LIVE TWIN INTRAUTERINE TWIN A EGA: 6 weeks 4 days. TWIN B EGA: 7 weeks 4 days. Unit disc external to discrepancy between the EGAs of the fetuses the heart rate of Twin A is abnormally low and the gestational sac of Twin A is close to the lower uterine segment and the aforementioned subchronic hemorrhage. A follow-up ultrasound is recommended. Trimester of : First trimester - 0 to 13 weeks. - Vital Signs Vital signs: Temp Pulse Resp BP Pulse Ox 98.2 F 77 17 137/77 H 98 01/14/20 05:36 01/14/20 10:28 01/14/20 10:28 01/14/20 10:28 01/14/20 10:28 - Laboratory Result Diagrams: 01/14/20 06:38 Laboratory results interpreted by me: 01/14/20 01/14/20 06:38 06:38 Beta HCG, Quant 07904.00 H Urine Blood LARGE H - Diagnostic Test Radiology reviewed: Image reviewed, Reports reviewed Discharge - Discharge Clinical Impression: Vaginal bleeding Qualifiers: Weeks of gestation: less than 8 weeks Qualified Code(s): Z3A.01 - Less than 8 weeks gestation of Subchorionic bleed Qualifiers: Fetus number: fetus 2 of multiple gestation Trimester: first trimester Qualified Code(s): O41.8X12 - Other specified disorders of amniotic fluid and membranes, first trimester, fetus 2 Condition: Stable Disposition: HOME, SELF-CARE Instructions: Bleeding During Early ([facility]), [facility], [facility] Department, ([facility]) Additional Instructions: *You have been evaluated for vaginal bleeding, , subchorionic bleed *Ultrasound shows living twin intrauterine *Follow up with your ELEVATOR CONSTRUCTOR as scheduled *Avoid sexual intercourse until follow up *Return to ED for worsening condition, changes, needs Forms: Elevated Blood Pressure, Return to Work
[2020-01-14 10:29] VITALS: BP 137/77
== END 2020-01-14 10:28 | disposition home or self-care (01) ==
LOC: ER 05:31
DX: O20.8 Other hemorrhage in early pregnancy (principal); O30.041 Twin pregnancy, dichorionic/diamniotic, first trimester; O99.331 Smoking (tobacco) complicating pregnancy, first trimester; F17.200 Nicotine dependence, unspecified, uncomplicated; Z3A.01 Less than 8 weeks gestation of pregnancy; Z79.899 Other long term (current) drug therapy; Z88.1 Allergy status to other antibiotic agents; Z88.8 Allergy status to other drugs, medicaments and biological substances
CPT/HCPCS: 36415; 76817; 81001; 84702; 85025; 99284